=== PATIENT | female | born 1990 | race Caucasian/White ===

== ENCOUNTER 2017-11-17 11:07 | Emergency (ER) | payer BC, MEDICAID, SELFPAY ==
[2017-11-17 11:08] VITALS: BP 107/82; PULSE 88; RESP 18; TEMP 36.7; O2SAT 100; BMI 17.8
--- NOTE | 2017-11-17 11:14 | XR_ITS ---
XR chest 2V HISTORY: ITS.REASON: CHEST PAIN ORDERING PHYSICIAN: Kevan Benitez MD PATIENT AGE: 26 years COMPARISON: None available FINDINGS: The cardiomediastinal silhouette and pulmonary vascularity are within normal limits. The lungs are clear without infiltrates, suspicious nodules, or pleural effusions. Calcified granulomas present in the left midlung No acute bony abnormalities. IMPRESSION: No acute finding, old granulomatous disease
[2017-11-17 11:32] LABS: Basophils # 0.1 K/mm3 (0-0.2); Eosinophils # 0.3 K/mm3 (0.0-0.4); Eosinophils % 5.6 % (0.1-12.0); Hematocrit 41.5 % (37.0-47.0); Hemoglobin 13.9 g/dL (12.2-16.2); Lymphocytes # 1.7 K/mm3 (0.7-4.5); Mean Corpuscular HGB Conc 33.4 g/dL (31.8-35.4); Mean Corpuscular Hemoglobin 30.2 pg (27.0-31.2); Mean Corpuscular Volume 90.4 fl (81-99); Mean Platelet Volume 7.5 fl (7.4-10.4); Monocytes # 0.4 K/mm3 (0.1-1.0); Monocytes % 9.4 % (1.7-9.3); Neutrophils # 2.1 K/mm3 (1.8-7.8); Platelet Count 271 K/mm3 (142-424); Red Blood Count 4.59 M/mm3 (4.20-5.40); Red Cell Distribution Width 12.7 % (11.5-17.5); White Blood Count 4.5 K/mm3 (4.8-10.8)
[2017-11-17 11:33] LABS: Microscopic, Urine URINE MICROSCOPIC (MICROSCOPIC)
[2017-11-17 11:36] LABS: Appearance,Urine CLEAR (Clear); Bilirubin,Urine Negative (Negative); Blood, Urine 2+ (Negative); Color,Urine YELLOW (Yellow); Glucose,Urine (UA) Negative (Negative); Ketones,Urine Negative (Negative); Leukocyte Esterase,Urine Negative (Negative); Nitrate,Urine Negative (Negative); Protein,Urine Negative (Negative); Urobilinogen,Urine 0.2 EU/dl (0.2)
[2017-11-17 11:39] LABS: Urine Pregnancy, HCG Qual. Negative (Negative)
[2017-11-17 11:47] LABS: D-Dimer < 100 (0-400)
[2017-11-17 11:51] LABS: Bacteria,Urine Trace /lpf; RBC,Urine Occasional #/hpf (0-3); Squamous Epithelial Cell,Urine Occasional #/hpf (0-5)
[2017-11-17 11:52] LABS: Amphetamine/Metha Screen,Urine Negative ng/mL (<1000); Barbiturates Screen,Urine Negative ng/mL (<200); Benzodiazepines Screen,Urine Negative ng/mL (200); Cannabinoid Screen,Urine Negative ng/mL (<50); Cocaine Screen,Urine Negative ng/g (<300); Methadone Screen,Urine Negative ng/mL (<300); Opiate Screen,Urine Negative ng/mL (<300); Phencyclidine Screen,Urine Negative ng/mL (<25)
[2017-11-17 12:10] LABS: Alanine Aminotransferase 16 U/L (12-78); Albumin/Globulin Ratio 1.2 (1.1-1.8); Alkaline Phosphatase 44 U/L (46-116); Anion Gap 10.5 mEq/L (5-15); Aspartate Amino Transferase 12 U/L (15-37); Bilirubin,Total 0.5 mg/dL (0.2-1.0); Blood Urea Nitrogen 9 mg/dL (7-18); Calcium 8.5 mg/dL (8.5-10.1); Carbon Dioxide 27 mmol/L (21.0-32.0); Chloride 106 mmol/L (98-107); Creatine Kinase 52 U/L (26-192); Creatinine Clearance Estimated 100 mL/min (0-300); Creatinine,Serum 0.64 mg/dL (0.55-1.02); Estimated Glomerular Filt Rate 110 ml/min (>60); GFR (African American) 134 ML/MIN (>60); Globulin 3.3 gm/dl (1.3-3.2); Glucose 87 mg/dL (74-106); Potassium 3.5 mmoL/L (3.5-5.1); Sodium 140 mmol/L (136-145); Total Protein,Serum 7.3 gm/dL (6.4-8.2); Troponin I < 0.02 ng/ml (0.00-0.06)
[2017-11-17 12:11] LABS: Creatine Kinase MB < 0.5 mg/ml (0.0-3.6)
--- NOTE | 2017-11-17 12:41 | HMH.EDCP ---
ED Disposition Clinical Impression: Atypical chest pain, Tobacco use Disposition: Home, Self-Care Condition on Discharge: Good Additional Instructions: 1- The patient was advised for daily aspirin. EC 325 mg . 2-patient was advised for an outpatient stress test by Dr. Cotton. 3-stop smoking. 4-follow-up with a primary care physician Feliberto العراقي on her abnormal chest x-ray. 5-to return if she develops any new symptoms. Referrals: Damien Conley MD [Primary Care Provider] - Nadeem Cotton MD [Staff Physician] - - Critical Care Critical Care Time: No Attestation: On 11/17/17, the high probability of a clinically significant, sudden or life threatening deterioration of the following system(s) required my full and direct attention, intervention and personal management. The time I documented below is in addition to time spent performing reported procedures but includes the following listed in this critical care notation. Medical Decision Making - Medical Records Medical records reviewed: Yes: I reviewed the patient's medical records. Vital Signs: 11/17/17 11:08 Temperature 98.0 F Temperature Source Temporal Artery Scan Pulse Rate [Right Brachial] 88 Respiratory Rate 18 Blood Pressure [Right Arm] 107/82 Blood Pressure Mean [Right Arm] 90 Blood Pressure Source [Right Arm] Automatic Cuff Blood Pressure Position [Right Arm] Sitting 02 Sat by Pulse Oximetry 100 Oxygen Delivery Method Room Air - Lab Data Lab Results 11/17/17 11:15: WBC 4.5 L, RBC 4.59, Hgb 13.9, Hct 41.5, MCV 90.4, MCH 30.2, MCHC 33.4, RDW 12.7, Plt Count 271, MPV 7.5, Neut % (Auto) 47.0, Lymph % (Auto) 37.0, [place] % (Auto) 9.4 H, Eos % (Auto) 5.6, Baso % (Auto) 1.0, Neut # (Auto) 2.1, Lymph # (Auto) 1.7, [place] # (Auto) 0.4, Eos # (Auto) 0.3, Baso # (Auto) 0.1 11/17/17 11:15: Urine HCG, Qual Negative 11/17/17 11:15: Sodium 140, Potassium 3.5, Chloride 106, Carbon Dioxide 27, Anion Gap 10.5, BUN 9, Creatinine 0.64, Estimated Creat Clear 100, Estimated GFR 110, Est GFR ( Amer) 134, Glucose 87, Calcium 8.5, Total Bilirubin 0.5, AST 12 L, ALT 16, Alkaline Phosphatase 44 L, Total Creatine Kinase 52, CK-MB (CK-2) < 0.5, CK-MB (CK-2) Rel Index 1.0, Troponin I < 0.02, Total Protein 7.3, Albumin 4.0, Globulin 3.3 H, Albumin/Globulin Ratio 1.2 11/17/17 11:15: Urine Opiates Screen Negative, Ur Barbituates Screen Negative, Ur Phencyclidine Scrn Negative, Ur Amphetamines Screen Negative, U Methamphetamines Scrn Negative, U Benzodiazepines Scrn Negative, Urine Cocaine Screen Negative, U Marijuana (THC) Screen Negative 11/17/17 11:15: D-Dimer < 100 11/17/17 11:15: B-Natriuretic Peptide 7 11/17/17 11:21: Urine Color Yellow, Urine Appearance Clear, Urine pH 6.0, Ur Specific [place] 1.020, Urine Protein Negative, Urine Glucose (UA) Negative, Urine Ketones Negative, Urine Blood 2+, Urine Nitrate Negative, Urine Bilirubin Negative, Urine Urobilinogen 0.2, Ur Leukocyte Esterase Negative, Urine RBC Occasional, Urine WBC None, Ur Squamous Epith Cells Occasional, Urine Bacteria Trace Result diagrams: 11/17/17 11:15 11/17/17 11:15 Orders (Tests/Meds): ORDERS Category Date Time Status Chest XR 2 view (NOT portable) [XR chest 2V] Stat Exams 11/17/17 11:14 Taken - Radiology Data #1 Image(s): Chest Image Reviewed: Yes I reviewed the patient's radiology image Preliminary Findings: Abnormal Left lung granuloma no acute findings. - ECG Data Tracing #1 Normal sinus rhythm 72/min baseline artifact nonspecific T-wave changes no acute. 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 ECG initial impression date: 11/17/17 - [place] Inquiry Pt receiving controlled substance: No [place] was queried for this patient: No Medical Decision Making Narrative: This 26 years old's advancing atypical chest pain that is worse with arm movement especially when she raises her right arm above her head. He did have prior shoulder inj
--- NOTE | 2017-11-17 12:44 | ED_ITS ---
ED Disposition Clinical Impression: Atypical chest pain, Tobacco use Disposition: Home, Self-Care Condition on Discharge: Good Additional Instructions: 1- The patient was advised for daily aspirin. EC 325 mg . 2-patient was advised for an outpatient stress test by Dr. Cotton. 3-stop smoking. 4-follow-up with a primary care physician Feliberto العراقي on her abnormal chest x -ray. 5-to return if she develops any new symptoms. Referrals: Damien Conley MD [Primary Care Provider] - Nadeem Cotton MD [Staff Physician] - - Critical Care Critical Care Time: No Attestation: On 11/17/17, the high probability of a clinically significant, sudden or life threatening deterioration of the following system(s) required my full and direct attention, intervention and personal management. The time I documented below is in addition to time spent performing reported procedures but includes the following listed in this critical care notation. Medical Decision Making - Medical Records Medical records reviewed: Yes: I reviewed the patient's medical records. Vital Signs: 11/17/17 11:08 Temperature 98.0 F Temperature Source Temporal Artery Scan Pulse Rate [Right Brachial] 88 Respiratory Rate 18 Blood Pressure [Right Arm] 107/82 Blood Pressure Mean [Right Arm] 90 Blood Pressure Source [Right Arm] Automatic Cuff Blood Pressure Position [Right Arm] Sitting 02 Sat by Pulse Oximetry 100 Oxygen Delivery Method Room Air - Lab Data Lab Results 11/17/17 11:15: WBC 4.5 L, RBC 4.59, Hgb 13.9, Hct 41.5, MCV 90.4, MCH 30.2, MCHC 33.4, RDW 12.7, Plt Count 271, MPV 7.5, Neut % (Auto) 47.0, Lymph % (Auto) 37.0, [place] % (Auto) 9.4 H, Eos % (Auto) 5.6, Baso % (Auto) 1.0, Neut # (Auto) 2.1, Lymph # (Auto) 1.7, [place] # (Auto) 0.4, Eos # (Auto) 0.3, Baso # (Auto) 0.1 11/17/17 11:15: Urine HCG, Qual Negative 11/17/17 11:15: Sodium 140, Potassium 3.5, Chloride 106, Carbon Dioxide 27, Anion Gap 10.5, BUN 9, Creatinine 0.64, Estimated Creat Clear 100, Estimated GFR 110, Est GFR ( Amer) 134, Glucose 87, Calcium 8.5, Total Bilirubin 0.5, AST 12 L, ALT 16, Alkaline Phosphatase 44 L, Total Creatine Kinase 52, CK- MB (CK-2) < 0.5, CK-MB (CK-2) Rel Index 1.0, Troponin I < 0.02, Total Protein 7.3, Albumin 4.0, Globulin 3.3 H, Albumin/Globulin Ratio 1.2 11/17/17 11:15: Urine Opiates Screen Negative, Ur Barbituates Screen Negative, Ur Phencyclidine Scrn Negative, Ur Amphetamines Screen Negative, U Methamphetamines Scrn Negative, U Benzodiazepines Scrn Negative, Urine Cocaine Screen Negative, U Marijuana (THC) Screen Negative 11/17/17 11:15: D-Dimer < 100 11/17/17 11:15: B-Natriuretic Peptide 7 11/17/17 11:21: Urine Color Yellow, Urine Appearance Clear, Urine pH 6.0, Ur Specific [place] 1.020, Urine Protein Negative, Urine Glucose (UA) Negative, Urine Ketones Negative, Urine Blood 2+, Urine Nitrate Negative, Urine Bilirubin Negative, Urine Urobilinogen 0.2, Ur Leukocyte Esterase Negative, Urine RBC Occasional, Urine WBC None, Ur Squamous Epith Cells Occasional, Urine Bacteria Trace Result diagrams: 11/17/17 11:15 11/17/17 11:15 Orders (Tests/Meds): ORDERS Category Date Time Status Chest XR 2 view (NOT portable) [XR chest 2V] Stat Exams 11/17/17 11:14 Taken - Radiology Data #1 Image(s): Chest Image Reviewed: Yes I reviewed the patient's radiology image Preliminary Findings: Abnormal Left lung gran
== END 2017-11-17 13:03 | disposition home or self-care (01) ==
PROVIDERS: Emergency Provider Emergency Medicine; Family Provider Internal Medicine; PCP Emergency Medicine
DX: R07.89 Other chest pain (principal); F17.210 Nicotine dependence, cigarettes, uncomplicated
CPT/HCPCS: 71046; 80053; 80305; 81001; 81025; 82550; 82553; 83880; 84484; 85025; 85378; 93005; 99284

== ENCOUNTER → 2017-11-23 13:56 | Outpatient (CLI) | payer BC, MEDICAID, SELFPAY ==
[2017-11-23 15:40] LABS: Erythrocyte Sedimentation Rate 4 mm/hr (0-20)
== END ==
PROVIDERS: PCP Nurse Practitioner Family; Visit Provider Internal Medicine Cardiovascular Disease
DX: R07.89 Other chest pain (principal); R94.31 Abnormal electrocardiogram [ECG] [EKG]; Z72.0 Tobacco use
CPT/HCPCS: 36415; 85651

== ENCOUNTER → 2017-11-26 09:12 | Outpatient (CLI) | payer BC, MEDICAID, SELFPAY ==
--- NOTE | 2017-11-26 09:17 | CA_ITS ---
PROCEDURE: 2-D M-mode and color Doppler study INDICATIONS FOR THE TEST: Chest painx COPD Heart Murmur Tobacco Smokingx Palpitations Fatigue Syncope Edema Hypertension Diabetes Mellitus Rheumatic Fever SOBxDOE Obesity Hyperlipidemia Family History HDx Additional History PATIENT INFORMATION HEIGHT: 5'5'' WEIGHT: 108 GENDER: Female B/P: 2-D/M-MODE INTERPRETATION: 2-D MEASUREMENTS OBSERVED VALUES IN CMS Right Ventricular Dimension (RVDd) 2.1 Interventricular Septum (Thickness)(IVsd) 0.7 Left Ventricular Internal Dimensions(LVIDd) 3.7 Left Ventricular Posterior Wall (Thickness)(LVPWd) 0.8 Aortic Root 2.5 Aortic Cusp Separation 1.5 Left Atrial Dimensions (LAD) 2.6 2D 1. Left atrium is normal size, left ventricle is normal size, there is no concentric left ventricular hypertrophy, visually estimated ejection fraction 55% with no obvious regional wall motion abnormality. 2. The right atrium and right ventricle are relatively normal size and contractility. 3. The aortic, mitral and tricuspid valve are grossly normal. 4. The pulmonic valve is poorly visualized. 5. No significant pericardial effusion noted. DOPPLER INTERROGATION: Doppler interrogation of the aortic, mitral and tricuspid valvular presence of trace mitral and tricuspid regurgitation, tricuspid and jet velocity insufficient for calculation of the right ventricular systolic pressure, diastolic parameters are within normal range. CONCLUSION: 1. Normal left ventricular size, preserved left ventricular systolic function, visually estimated ejection fraction 55% with no obvious regional wall motion abnormality, diastolic parameters are within normal range. 2. Trace mitral and tricuspid regurgitation 3. No significant pericardial effusion noted.
== END ==
PROVIDERS: Family Provider Internal Medicine; PCP Nurse Practitioner Family; Visit Provider Internal Medicine
DX: R07.89 Other chest pain (principal); R94.31 Abnormal electrocardiogram [ECG] [EKG]; Z72.0 Tobacco use
CPT/HCPCS: 93306

== ENCOUNTER 2018-02-03 10:59 | Outpatient (RCR) | payer BC, MEDICAID, SELFPAY ==
--- NOTE | 2018-02-03 11:45 | HMH.PTOPEV ---
Rehab Outpatient Evaluation Rehab OP Evaluation Start: 02/03/18 11:31 Freq: Status: Active Protocol: Document 02/03/18 11:31 KHADRA (Rec: 02/03/18 11:43 KHADRA [id number]) Electronically Signed By Dago Patel, PT 02/03/18 11:31 Outpatient Therapy Subjective History Subjective History Pt reports h/o chronic neck and LBP for ~2-3 yrs. Pt reports bilateral LBP, w/o radicular s/s, and R sided neck pain with radicular s/s into R SH blade area. Pt reports this most recent exacerbation began with insidious onset. Chief Complaint Pain Spasms Stiff Paresthesia Weakness Symptom Type Ache Throb Sharp Dull Stabbing Burning Numbness Tingling Shooting Symptoms Relieved By Rest/Positioning Symptoms Aggravated By Standing Bending/Stooping Physical Activity Twisting Walking Prior Functional Limitations Lifting Housework Standing Sitting Walking Current Functional Limitations Lifting Housework Standing Sitting Walking Symptom Description Constant but Variable Level of pain today (0-10) 7 Pain scale - at its best (0-10) 7 Pain scale - at its worst (0-10) 9 Cervical Eval Palpation Cervical Muscles R Cervical Paraspinal R Suboccipital R CT Junction R Upper Trapezius Cervical/Thoracic Palpation Findings Tenderness Trigger Point Muscle Guarding Posture Head/C-Spine Posture Sitting Position Flexed Head/C-Spine Posture Standing Position Flexed Flexibility Deficits Upper Trapezius Muscle Length (R) Moderate Tightness Scalene Group Muscle Length (R) Moderate Tightness Passive Joint Mobility Ce
== END 2018-02-03 11:00 | disposition home or self-care (01) ==
LOC: PT 10:59
PROVIDERS: Family Provider Internal Medicine; PCP Emergency Medicine; Visit Provider Emergency Medicine
DX: M54.2 Cervicalgia (principal); M54.9 Dorsalgia, unspecified

== ENCOUNTER → 2018-04-27 10:50 | Outpatient (REF) | payer BC, MEDICAID, SELFPAY ==
[2018-04-27 14:26] LABS: Amphetamine/Metha Screen,Urine Negative ng/mL (<1000); Barbiturates Screen,Urine Negative ng/mL (<200); Benzodiazepines Screen,Urine Negative ng/mL (<200); Cannabinoid Screen,Urine Negative ng/mL (<50); Cocaine Screen,Urine Negative ng/mL (<300); Methadone Screen,Urine Negative ng/mL (<300); Opiate Screen,Urine Negative ng/mL (<300); Phencyclidine Screen,Urine Negative ng/mL (<25)
== END ==
LOC: LAB 10:50
PROVIDERS: Visit Provider Emergency Medicine
DX: Z79.899 Other long term (current) drug therapy (principal)
CPT/HCPCS: 80305

== ENCOUNTER → 2018-07-26 10:44 | Outpatient (REF) | payer BC, MEDICAID, SELFPAY ==
[2018-07-26 14:50] LABS: Amphetamine/Metha Screen,Urine Negative ng/mL (<1000); Barbiturates Screen,Urine Negative ng/mL (<200); Benzodiazepines Screen,Urine Negative ng/mL (<200); Cannabinoid Screen,Urine Negative ng/mL (<50); Cocaine Screen,Urine Negative ng/mL (<300); Methadone Screen,Urine Negative ng/mL (<300); Opiate Screen,Urine Negative ng/mL (<300); Phencyclidine Screen,Urine Negative ng/mL (<25)
== END ==
LOC: LAB 10:44
PROVIDERS: Visit Provider Emergency Medicine
DX: Z79.899 Other long term (current) drug therapy (principal)
CPT/HCPCS: 80305

== ENCOUNTER → 2018-07-28 08:27 | Outpatient (CLI) | payer BC, MEDICAID, SELFPAY ==
[2018-08-04 16:24] LABS: Alprazolam Negative (Cutoff=100); Benzodiazepines Negative ng/mL (Cutoff=100); Clonazepam Negative (Cutoff=100); Flurazepam Negative (Cutoff=100); Lorazepam Negative (Cutoff=100); Midazolam Negative (Cutoff=100); Temazepam Negative (Cutoff=100); Triazolam Negative (Cutoff=100)
== END ==
PROVIDERS: Visit Provider Emergency Medicine
DX: Z79.899 Other long term (current) drug therapy (principal)
CPT/HCPCS: 80346

== ENCOUNTER → 2018-10-28 14:03 | Outpatient (CLI) | payer BC, MEDICAID, SELFPAY ==
[2018-10-28 15:12] LABS: Amphetamine/Metha Screen,Urine Negative ng/mL (<1000); Barbiturates Screen,Urine Negative ng/mL (<200); Benzodiazepines Screen,Urine Negative ng/mL (<200); Cannabinoid Screen,Urine Negative ng/mL (<50); Cocaine Screen,Urine Negative ng/mL (<300); Methadone Screen,Urine Negative ng/mL (<300); Opiate Screen,Urine Negative ng/mL (<300); Phencyclidine Screen,Urine Negative ng/mL (<25)
[2018-11-02 10:15] LABS: Alprazolam Negative (Cutoff=100); Benzodiazepines Positive ng/mL (Cutoff=100); Clonazepam Positive (.); Flurazepam Negative (Cutoff=100); Lorazepam Negative (Cutoff=100); Midazolam Negative (Cutoff=100); Temazepam Negative (Cutoff=100); Triazolam Negative (Cutoff=100)
[2018-11-02 13:59] LABS: Clonazepam Confirm 976 ng/mL (Cutoff=100)
== END ==
PROVIDERS: Visit Provider Emergency Medicine
DX: Z79.899 Other long term (current) drug therapy (principal)
CPT/HCPCS: 80305; 80346

== ENCOUNTER → 2019-03-01 17:40 | Outpatient (CLI) | payer BC, MEDICAID, SELFPAY ==
[2019-03-01 18:23] LABS: Amphetamine/Metha Screen,Urine Negative ng/mL (<1000); Barbiturates Screen,Urine Negative ng/mL (<200); Benzodiazepines Screen,Urine Negative ng/mL (<200); Cannabinoid Screen,Urine Negative ng/mL (<50); Cocaine Screen,Urine Negative ng/mL (<300); Methadone Screen,Urine Negative ng/mL (<300); Opiate Screen,Urine Negative ng/mL (<300); Phencyclidine Screen,Urine Negative ng/mL (<25)
== END ==
PROVIDERS: Visit Provider Nurse Practitioner Family
DX: Z79.899 Other long term (current) drug therapy (principal)
CPT/HCPCS: 80305

== ENCOUNTER → 2019-05-25 13:24 | Outpatient (CLI) | payer BC, MEDICAID, SELFPAY ==
[2019-05-25 14:39] LABS: Amphetamine/Metha Screen,Urine Negative ng/mL (<1000); Barbiturates Screen,Urine Negative ng/mL (<200); Benzodiazepines Screen,Urine Negative ng/mL (<200); Cannabinoid Screen,Urine Negative ng/mL (<50); Cocaine Screen,Urine Negative ng/mL (<300); Methadone Screen,Urine Negative ng/mL (<300); Opiate Screen,Urine Negative ng/mL (<300); Phencyclidine Screen,Urine Negative ng/mL (<25)
== END ==
PROVIDERS: Visit Provider Emergency Medicine
DX: Z79.899 Other long term (current) drug therapy (principal)
CPT/HCPCS: 80305

== ENCOUNTER → 2019-08-24 14:03 | Outpatient (CLI) | payer MEDICAID, SELFPAY ==
[2019-08-24 14:44] LABS: Amphetamine/Metha Screen,Urine Negative ng/mL (<1000); Barbiturates Screen,Urine Negative ng/mL (<200); Benzodiazepines Screen,Urine Negative ng/mL (<200); Cannabinoid Screen,Urine Negative ng/mL (<50); Cocaine Screen,Urine Negative ng/mL (<300); Methadone Screen,Urine Negative ng/mL (<300); Opiate Screen,Urine Negative ng/mL (<300); Phencyclidine Screen,Urine Negative ng/mL (<25)
== END ==
PROVIDERS: Visit Provider Emergency Medicine
DX: Z79.899 Other long term (current) drug therapy (principal)
CPT/HCPCS: 80305

== ENCOUNTER → 2019-11-21 13:58 | Outpatient (CLI) | payer BC, MEDICAID, SELFPAY ==
[2019-11-21 20:40] LABS: Amphetamine/Metha Screen,Urine Negative ng/mL (<1000); Barbiturates Screen,Urine Negative ng/mL (<200); Benzodiazepines Screen,Urine Negative ng/mL (<200); Cannabinoid Screen,Urine Negative ng/mL (<50); Cocaine Screen,Urine Negative ng/mL (<300); Methadone Screen,Urine Negative ng/mL (<300); Opiate Screen,Urine Negative ng/mL (<300); Phencyclidine Screen,Urine Negative ng/mL (<25)
== END ==
PROVIDERS: Visit Provider Emergency Medicine
DX: Z79.899 Other long term (current) drug therapy (principal)
CPT/HCPCS: 80305

== ENCOUNTER → 2020-03-14 13:26 | Outpatient (CLI) | payer BC, MEDICAID, SELFPAY ==
[2020-03-14 14:09] LABS: Alanine Aminotransferase 11 U/L (12-78); Albumin Level 4.4 g/dl (3.5-5.0); Albumin/Globulin Ratio 1.5 (1.1-1.8); Alkaline Phosphatase 41 U/L (38-126); Anion Gap 10.8 mEq/L (5-15); Aspartate Amino Transferase 21 U/L (14-36); Bilirubin,Total 0.3 mg/dl (0.2-1.3); Blood Urea Nitrogen 12 mg/dl (7-17); Calcium 9.3 mg/dl (8.4-10.2); Carbon Dioxide 25 mmol/L (22.0-30.0); Chloride 105 mmol/L (98-107); Chol/HDL Ratio 2.3 (1-3.5); Cholesterol 108 mg/dl (140-200); Estimated Glomerular Filt Rate 117 ml/min (>60); GFR (African American) 141 ML/MIN (>60); Globulin 2.9 g/dL (1.3-3.2); Glucose 95 mg/dl (74-100); HDL Cholesterol 46 mg/dl (40-60); Potassium 3.8 mmoL/L (3.5-5.1); Sodium 137 mmol/L (136-145); Total Protein,Serum 7.3 g/dl (6.3-8.2); Triglycerides 64 mg/dl (30-150); VLDL Cholesterol 13 mg/dL (0-40)
[2020-03-14 14:21] LABS: Direct LDL Cholesterol 66.41 mg/dL (100-129)
[2020-03-14 14:28] LABS: Basophils # 0.1 K/mm3 (0-0.2); Basophils % 1.7 % (0.1-2.0); Eosinophils # 0.2 K/mm3 (0.0-0.4); Eosinophils % 4.8 % (0.1-12.0); Hematocrit 49.7 % (37.0-47.0); Hemoglobin 15.5 g/dL (12.2-16.2); Lymphocytes # 1.5 K/mm3 (0.7-4.5); Mean Corpuscular HGB Conc 31.2 g/dL (31.8-35.4); Mean Corpuscular Hemoglobin 29.6 pg (27.0-31.2); Mean Platelet Volume 8.4 fl (7.4-10.4); Monocytes # 0.6 K/mm3 (0.1-1.0); Monocytes % 12.3 % (1.7-9.3); Neutrophils # 2.1 K/mm3 (1.8-7.8); Neutrophils % 47.1 % (37.0-80.0); Platelet Count 288 K/mm3 (142-424); Red Blood Count 5.22 M/mm3 (4.20-5.40); Red Cell Distribution Width 13.4 % (11.5-17.5); White Blood Count 4.5 K/mm3 (4.8-10.8)
[2020-03-14 14:32] LABS: T4 (Thyroxine) 8.2 ug/dl (5.53-11.0)
[2020-03-14 14:45] LABS: Thyroid Stimulating Hormone 1.41 uIU/mL (0.465-4.68)
[2020-03-15 11:38] LABS: Vitamin D 25 Hydroxy 31.9 ng/mL (30.0-100.0)
== END ==
PROVIDERS: Visit Provider Emergency Medicine
DX: Z01.89 Encounter for other specified special examinations (principal); F41.9 Anxiety disorder, unspecified; Z72.0 Tobacco use
CPT/HCPCS: 80053; 80061; 82652; 84436; 84443; 85025

== ENCOUNTER → 2020-03-20 17:32 | Outpatient (CLI) | payer BC, MEDICAID, SELFPAY ==
[2020-03-22 08:13] LABS: Hep A Ab, IgM Negative (Negative); Hep A Ab, Total Negative (Negative); Hep B Core Ab, Total Negative (Negative)
[2020-03-22 10:04] LABS: HIV Screen 4th Generation wRfx Non Reactive (Non Reactive)
[2020-03-22 10:05] LABS: Hep B Surface Ab, Qual Non Reactive (.); Hepatitis B Surface Antigen Negative (Negative); Hepatitis C Antibody <0.1 s/co ratio (0.0-0.9)
[2020-03-22 17:33] LABS: Peripheral Smear Review Scanned Result
== END ==
PROVIDERS: Visit Provider Physician Assistant
DX: D70.9 Neutropenia, unspecified (principal)
CPT/HCPCS: 36415; 86703; 86704; 86706; 86708; 87340; 87380; G0432

== ENCOUNTER 2020-04-26 23:51 | Emergency (ER) | payer BC, MEDICAID, SELFPAY ==
[2020-04-26 23:59] VITALS: BP 121/85; PULSE 86; RESP 14; TEMP 36.7; O2SAT 99; BMI 19.1
--- NOTE | 2020-04-27 00:59 | HMH.EDSKAF ---
ED Disposition Clinical Impression: Cellulitis Qualifiers: Site of cellulitis: neck Qualified Code(s): L03.221 - Cellulitis of neck Disposition: Home, Self-Care Condition on Discharge: Good Instructions: Cellulitis Additional Instructions: use meds and see pcp for follow up Prescriptions: Mupirocin [Bactroban 2% Ointment 22gm tube] 1 applicatio TP BID #1 tube Transmission Status: Pending to [id number] Minocycline HCl [Minocycline HCl 100mg Tab*] 100 mg PO BID #20 tab Transmission Status: Pending to [id number] Referrals: Damien Conley MD [Primary Care Provider] - - Critical Care Critical Care Time: No Attestation: On 04/26/20, the high probability of a clinically significant, sudden or life threatening deterioration of the following system(s) required my full and direct attention, intervention and personal management. The time I documented below is in addition to time spent performing reported procedures but includes the following listed in this critical care notation. Medical Decision Making - Medical Records Medical records reviewed: Yes: I reviewed the patient's medical records. - [place] Inquiry Pt receiving controlled substance: No Vital Signs: 04/26/20 23:59 Temperature 98.1 F Temperature Source Oral Pulse Rate [Right Brachial] 86 Respiratory Rate 14 Blood Pressure [Right Arm] 121/85 Blood Pressure Mean [Right Arm] 97 Blood Pressure Source [Right Arm] Automatic Cuff Blood Pressure Position [Right Arm] Sitting 02 Sat by Pulse Oximetry 99 Oxygen Delivery Method Room Air Skin/Abscess/FB HPI - General Chief complaint: Skin/Abscess/Foreign Body Stated complaint: Knot on back of neck;Tenderness in area Time Seen by Provider: 04/27/20 00:15 Mode of Arrival: Ambulatory Source of Information: Patient, Medical Record Limitations: No Limitations Description of Symptoms (Recalled from ER Triage Doc. by RN): Patient reports a bump that poppd up on the back of her neck about a month ago. Patient reports its never drained or come to a head but the pain has become untolerable. Patient reports her whole neck is sore and she cant even brush her hair because of the pain. - History of Present Illness HPI narrative: painful area post neck w/o trauma or known bite complaint: abscess/boil Onset (ago): hour(s) Tetanus up to date: yes Location: neck Severity: moderate Relieving factors: none Associated symptoms: denies other symptoms Treatments prior to arrival: none - Related Data Previous Rx's Medication Instructions Recorded Fluticasone Propionate [Flonase 1 spr NS DAILY #1 bottle 11/29/19 50mcg nasal spray 16gm] clonazepam 0.5 mg tablet 0.5 mg PO BID #60 tab 03/14/20 [id number] 3.5 2 drp OTIC BID 5 Days #10 ml 03/14/20 mg/mL-10,000 unit/mL-1 % ear solution fluoxetine 20 mg capsule 20 mg PO DAILY #30 cap 04/20/20 Minocycline HCl [Minocycline HCl 100 mg PO BID #20 tab 04/27/20 100mg Tab*] Mupirocin [Bactroban 2% Ointment 1 applicatio TP BID #1 tube 04/27/20 22gm tube] Allergies Allergy/AdvReac Type Severity Reaction Status Date / Time No Known Allergies Allergy Verified 03/14/20 09:43 [facility] History - Hepatitis A Screen Drug use history?: No High risk sexual behaviors?: No History of sexually transmitted infection?: No Currently employed?: No Childcare worker?: No Do you have indoor plumbing?: Yes Do you have electricity?: Yes Attestation statement:: This patient has been screened for Hepatitis A risk factors. I have reviewed the patient's past medical history: Yes Medical History: Reports:: Anxiety, Depression Denies:: Diabetes Mellitus Type 1, Diabetes Mellitus Type 2 Other Surgeries: Yes: Dilation and Curettage, Tubal Ligation Amputation: No Fractures: Yes (JAW) - Social History Smoking Status: Current every day smoker Tobacco Type: cigarettes # Packs/Day (cigarettes): 1 #Yrs smoked (if former smok
[2020-04-27 01:28] VITALS: BP 121/75; PULSE 73; RESP 16; TEMP 36.8
== END 2020-04-27 01:30 | disposition home or self-care (01) ==
PROVIDERS: Emergency Provider Emergency Medicine; PCP Emergency Medicine
DX: L03.221 Cellulitis of neck (principal); F41.8 Other specified anxiety disorders; F17.210 Nicotine dependence, cigarettes, uncomplicated; Z79.899 Other long term (current) drug therapy
CPT/HCPCS: 99281; 99282

== ENCOUNTER 2020-07-06 09:25 | Emergency (ER) | payer BC, MEDICAID, SELFPAY ==
[2020-07-06 09:43] VITALS: BP 119/84; PULSE 99; RESP 15; TEMP 36.6; O2SAT 99; BMI 29.1
--- NOTE | 2020-07-06 10:30 | HMH.EDURI ---
ED Disposition Clinical Impression: URI (upper respiratory infection) Qualifiers: URI type: acute nasopharyngitis (common cold) Qualified Code(s): J00 - Acute nasopharyngitis [common cold] Disposition: Home, Self-Care Condition on Discharge: Good Instructions: DI for Common Cold Referrals: Damien Conley MD [Primary Care Provider] - - Critical Care Critical Care Time: No Attestation: On 07/06/20, the high probability of a clinically significant, sudden or life threatening deterioration of the following system(s) required my full and direct attention, intervention and personal management. The time I documented below is in addition to time spent performing reported procedures but includes the following listed in this critical care notation. Medical Decision Making - Medical Records Medical records reviewed: Yes: I reviewed the patient's medical records. - [place] Inquiry Pt receiving controlled substance: No Vital Signs: 07/06/20 09:43 Temperature 97.9 F Temperature Source Oral Pulse Rate [Right Radial] 99 H Respiratory Rate 15 Blood Pressure [Right Arm] 119/84 Blood Pressure Mean [Right Arm] 95 02 Sat by Pulse Oximetry 99 Oxygen Delivery Method Room Air - Lab Data Lab Results 07/06/20 10:10: Influenza Type A Ag Negative, Influenza Type B Ag Negative 07/06/20 10:10: Group A Strep Rapid Negative Orders (Tests/Meds): ED MEDICATIONS Discontinued Medications Generic Name Dose Route Start Last Admin Trade Name Johnq PRN Reason Stop Dose Admin Acetaminophen 500 mg 07/06/20 09:48 07/06/20 10:06 Tylenol 500mg Tablet PO 07/06/20 09:49 500 mg ONCE ONE Administration Lidocaine HCl 15 ml 07/06/20 09:48 07/06/20 10:06 Lidocaine 2% Viscous Solution 15ml Udc PO 07/06/20 09:49 15 ml ONCE ONE Administration ORDERS Category Date Time Status Covid-19 Nasal PCR Sendout [place] Stat Lab 07/06/20 10:20 Received Strep Screen Confirmation Stat Micro 07/06/20 10:10 Received - Reevaluation(s) Time: 10:58 Reevaluation #1: On reevaluation, patient is feeling much better. Tolerating oral intake. Fluid strep are negative. Patient was given isolation and return precautions. Needs to follow-up with PCP. Verbalized understanding. Medical Decision Narrative: 29-year-old female presented to the emergency department with URI type symptoms. Patient is not hypoxic or febrile at this time. Work-up will be initiated. URI/Sore Throat HPI - General Chief Complaint: Upper Respiratory Infection Stated Complaint: sore throat,cg,ear pain chest burn Time Seen by Provider: 07/06/20 09:50 Mode of Arrival: Ambulatory Limitations: No Limitations Description of Symptoms (Recalled from ER Triage Doc. by RN): pt presents to ed with c/o loss of voice, sore throat and cough. pt also c/o bilateral ear pain. - History of Present Illness HPI Narrative: 29-year-old female presented to the emergency department with upper respiratory type symptoms. The patient has had multiple sick contacts for both of her sons with similar symptoms. She is complaining of runny nose, congestion, sore throat. She is also lost her voice. She is not having any difficulty swallowing, but does endorse pain with swallowing. She denies any fevers or chills. She has had some mild headache, no neck pain. She denies any recent travel. Is having a mild nonproductive cough. Patient denies any chest pain or shortness of breath. No hemoptysis. She is not having any abdominal pain or vomiting. - Related Data Previous Rx's Medication Instructions Recorded Fluticasone Propionate [Flonase 1 spr NS DAILY #1 bottle 11/29/19 50mcg nasal spray 16gm] [id number] 3.5 2 drp OTIC BID 5 Days #10 ml 03/14/20 mg/mL-10,000 unit/mL-1 % ear solution Mupirocin [Bactroban 2% Ointment 1 applicatio TP BID #1 tube 04/27/20 22gm tube] clonazepam 0.5 mg tablet 0.5 mg PO BID #60 tab 06/13/20 fluoxetine 40
[2020-07-06 10:33] LABS: Strep Scrn Group A (Rapid) Negative (Negative)
[2020-07-06 11:19] VITALS: BP 108/84; PULSE 87; RESP 16; TEMP 36.6; O2SAT 99
[2020-07-07 13:21] LABS: Covid-19 Nasal PCR Sendout Lex Not Detected
== END 2020-07-06 11:20 | disposition home or self-care (01) ==
PROVIDERS: Emergency Provider Emergency Medicine; PCP Emergency Medicine
DX: J00 Acute nasopharyngitis [common cold] (principal); Z03.818 Encounter for observation for suspected exposure to other biological agents ruled out; F41.8 Other specified anxiety disorders; F17.210 Nicotine dependence, cigarettes, uncomplicated; Z79.899 Other long term (current) drug therapy
CPT/HCPCS: 87275; 87276; 87430; 99282; U0004

== ENCOUNTER 2020-09-17 09:36 | Emergency (ER) | payer BC, MEDICAID, SELFPAY ==
[2020-09-17 10:30] VITALS: BP 101/68; PULSE 67; RESP 16; TEMP 37; O2SAT 100; BMI 19.4
--- NOTE | 2020-09-17 10:50 | HMH.EDUTC ---
[facility] [place] Disposition Clinical Impression: Muscular aches Diarrhea Qualifiers: Diarrhea type: unspecified type Qualified Code(s): R19.7 - Diarrhea, unspecified Disposition: Home, Self-Care Condition on Discharge: Good Instructions: Diarrhea Additional Instructions: ? Avoid fruit juices, as these do not replace minerals and can actually increase diarrhea. ? Children and adults can use sports drinks to replenish electrolytes. Younger children and infants should use products formulated for children, like oral rehydration solutions. ? Eat food in small amounts and let your stomach recover. ? Get lots of rest. You may feel tired or weak. ? No greasy or fried foods for the next 24-48 hours BRAT diet Bananas Rice Apples and [employer] ? Make sure to drink plenty of liquids ? Return if needed ? Straight to ER if any life threatening symptoms ? You was given an outpatient order for diarrhea panel, please collect specimen and bring back to outpatient lab then call back to the [facility] or follow up with family doctor for results ? Follow up with family doctor in the next 48-72 hours if no improvement or any worsening of symptoms Over the counter Motrin and/or tylenol for body aches Over the counter Muscle rubs like Biofreeze or patches may help with muscle pain/stiffness in neck Prescriptions: Dicyclomine HCl [Bentyl 10mg capsule] 10 mg PO TID PRN #15 cap PRN Reason: Cramping Transmission Status: Received by [id number] Referrals: Damien Conley MD [Primary Care Provider] - As needed Forms: Work/School Release Time of Disposition: 11:15 Medical Decision Making - [place] Inquiry Pt receiving controlled substance: No [place] was queried for this patient: No Vital Signs: 09/17/20 10:30 Temperature 98.6 F Temperature Source Oral Pulse Rate [Right Brachial] 67 Respiratory Rate 16 Blood Pressure [Right Arm] 101/68 L Blood Pressure Mean [Right Arm] 79 Blood Pressure Source [Right Arm] Automatic Cuff Blood Pressure Position [Right Arm] Sitting 02 Sat by Pulse Oximetry 100 Oxygen Delivery Method Room Air Orders (Tests/Meds): ED MEDICATIONS Discontinued Medications Generic Name Dose Route Start Last Admin Trade Name Freq PRN Reason Stop Dose Admin Dicyclomine HCl 10 mg 09/17/20 10:55 Dicyclomine 10mg Capsule PO 09/17/20 10:56 ONCE ONE [facility] [place] HPI - General Stated complaint: diarrhea, stomach pain, body aches Time Seen by Provider: 09/17/20 10:50 Mode of Arrival: Ambulatory Source of Information: Patient Limitations: No Limitations Description of Symptoms (Recalled from Triage Doc. by RN): PATIENT C/O STOMACH CRAMPS, DIARRHEA, BODY ACHES, AND NECK PAIN SINCE LAST NIGHT HEENT Symptoms (Recalled from RN notes): No Resp Symptoms (Recalled from RN notes): No Skin Symptoms (Recalled from RN notes): No MS Symptoms (Recalled from RN notes): Yes Functional Status (Recalled from RN notes): WNL - History of Present Illness Provider Complaint: Patient state that she doesnt feel well States that she has been feeling achy all over and thinks she may have slept wrong her neck is sore and stiff, States that today she has been having some nausea and diarrhea States that she had to leave work earlier States that she is having some cramping and they told her she needed to come in and get checked - Related Data Previous Rx's Medication Instructions Recorded Fluticasone Propionate [Flonase 1 spr NS DAILY #1 bottle 11/29/19 50mcg nasal spray 16gm] fluoxetine 40 mg capsule 40 mg PO DAILY #30 cap 06/18/20 clonazepam 0.5 mg tablet 0.5 mg PO BID #60 tab 09/10/20 meloxicam 15 mg tablet 15 mg PO DAILY #10 tab 09/10/20 Dicyclomine HCl [Bentyl 10mg 10 mg PO TID PRN #15 cap 09/17/20 capsule] Allergies Allergy/AdvReac Type Severity Reaction Status Date / Time No Known Allergies Allergy Verified 09/10/20 09:46 - Worker's Comp Is this a Worker's Comp case?: No [facility] History - Hepatitis A Screen
[2020-09-17 11:25] LABS: UTC Influenza A Antigen Negative (Negative)
[2020-09-17 11:26] LABS: UTC Influenza B Antigen Negative (Negative)
[2020-09-17 11:28] VITALS: BP 101/68; PULSE 67; RESP 16; TEMP 37; O2SAT 100
== END 2020-09-17 11:30 | disposition home or self-care (01) ==
PROVIDERS: Emergency Provider Nurse Practitioner; PCP Emergency Medicine
DX: M79.10 Myalgia, unspecified site (principal); F41.8 Other specified anxiety disorders; Z79.899 Other long term (current) drug therapy; F17.210 Nicotine dependence, cigarettes, uncomplicated
CPT/HCPCS: 87804; 99201

== ENCOUNTER 2020-09-18 09:08 | Emergency (ER) | payer BC, MEDICAID, SELFPAY ==
[2020-09-18 09:25] VITALS: BP 96/63; PULSE 81; RESP 18; TEMP 37.1; O2SAT 98; BMI 19.4
--- NOTE | 2020-09-18 09:46 | HMH.EDUTC ---
[facility] [place] Disposition Clinical Impression: Encounter for laboratory testing for COVID-19 virus Disposition: Home, Self-Care Condition on Discharge: Good Instructions: Diarrhea, DI for Vomiting -- Adult, Preventing the Spread of Coronavirus Discharge Instructions Additional Instructions: *Monitor Temp, Over the counter Motrin or Tylenol as directed/as needed Tylenol every 4 hours and Motrin every 6 hours (as long as your family doctor has told you that you can take it) for fever or pain. and straight to ER if unable to lower temp less than 101.0 after medication given *Warm salt water gargles may help to soothe the throat *Throat Lozenges *Warm fluids like tea with honey may help to soothe the throat *Sleep elevated *Humidifier/Vaporizer Follow up IMMEDIATELY for new or worsening symptoms or no Noticeable improvement over the next 48-72 hours. 911 for difficulty breathing or swallowing You was tested for today for COVID19 your test result should be back in the next 24-48 hours, you may call to the [facility] tomorrow to see if your test results are back and the result [phone] [facility] hours are 9am-9pm You was given a handout with instructions for Self Quarantine and Self isolation for while you wait on test results and what to do if they are positive If you are positive the Health Dept will be contacting you also Prescriptions: Ondansetron [Zofran 4mg ODT] 4 mg PO TIDP PRN #6 tab PRN Reason: Vomiting Transmission Status: Pending to [id number] Referrals: Damien Conley MD [Primary Care Provider] - As needed Forms: Work/School Release Time of Disposition: 10:06 Medical Decision Making - Austen Inquiry Pt receiving controlled substance: No Austen was queried for this patient: No Vital Signs: 09/18/20 09:25 09/18/20 10:01 Temperature 98.8 F Temperature Source Oral Pulse Rate [Right Brachial] 81 Respiratory Rate 18 Blood Pressure [Right Arm] 96/63 L 111/67 Blood Pressure Mean [Right Arm] 74 81 Blood Pressure Source [Right Arm] Automatic Cuff Blood Pressure Position [Right Arm] Sitting 02 Sat by Pulse Oximetry 98 Oxygen Delivery Method Room Air Orders (Tests/Meds): ORDERS Category Date Time Status Covid-19 Nasal PCR Sendout [facility] 11/24/20 09:23 Ordered Medical Decision Narrative: Patient states that she has taken Zofran before without complications or reactions [facility] [place] HPI - General Stated complaint: Covid test Time Seen by Provider: 09/18/20 09:46 Mode of Arrival: Ambulatory Source of Information: Patient Limitations: No Limitations Description of Symptoms (Recalled from Triage Doc. by RN): PATIENT REQUESTING COVID TEST. C/O FEVER, NAUSEA, AND BODY ACHES SINCE YESTERDAY HEENT Symptoms (Recalled from RN notes): No Resp Symptoms (Recalled from RN notes): No Skin Symptoms (Recalled from RN notes): No MS Symptoms (Recalled from RN notes): No Functional Status (Recalled from RN notes): WNL - History of Present Illness Provider Complaint: Patient states that she was seen in the [facility] yesterday for diarrhea and fever but refused tested for COVID States that today she is back and agreeing to have a COVID test done States that she has been having bodyaches, chills and nausea today States that diarrhea is better but still not feeling well - Related Data Previous Rx's Medication Instructions Recorded Fluticasone Propionate [Flonase 1 spr NS DAILY #1 bottle 11/29/19 50mcg nasal spray 16gm] fluoxetine 40 mg capsule 40 mg PO DAILY #30 cap 06/18/20 clonazepam 0.5 mg tablet 0.5 mg PO BID #60 tab 09/10/20 meloxicam 15 mg tablet 15 mg PO DAILY #10 tab 09/10/20 Dicyclomine HCl [Bentyl 10mg 10 mg PO TID PRN #15 cap 09/17/20 capsule] Ondansetron [Zofran 4mg ODT] 4 mg PO TIDP PRN #6 tab 09/18/20 Allergies Allergy/AdvReac Type Severity Reaction Status Date / Time No Known Allergies Allergy Verified 09/10/20 09:46 - Worker's Comp Is this a Worker's Comp case?
[2020-09-18 10:01] VITALS: BP 111/67
[2020-09-18 10:09] VITALS: BP 111/67; PULSE 81; RESP 18; TEMP 37.1; O2SAT 98
[2020-09-18 11:53] LABS: UTC Influenza A Antigen Negative (Negative); UTC Influenza B Antigen Negative (Negative); UTC Strep Screen (Rapid) Negative (Negative)
[2020-09-19 15:29] LABS: Covid-19 Nasal PCR Sendout Lex Not Detected
== END 2020-09-18 10:10 | disposition home or self-care (01) ==
PROVIDERS: Emergency Provider Nurse Practitioner; PCP Emergency Medicine
DX: Z20.828 Contact with and (suspected) exposure to other viral communicable diseases (principal)
CPT/HCPCS: 87804; 87880; 99202; U0004

== ENCOUNTER → 2020-12-28 17:31 | Outpatient (CLI) | payer BC, MEDICAID, SELFPAY ==
[2020-12-28 18:40] LABS: Barbiturates Screen,Urine Negative ng/ml (<200)
[2020-12-28 18:41] LABS: Benzodiazepines Screen,Urine Negative ng/ml (<200)
[2020-12-28 18:42] LABS: Amphetamine/Metha Screen,Urine Negative ng/ml (<1000); Cannabinoid Screen,Urine Negative ng/ml (<50)
[2020-12-28 18:43] LABS: Cocaine Screen,Urine Negative ng/ml (<300)
[2020-12-28 18:44] LABS: Methadone Screen,Urine Negative ng/ml (<300); Opiate Screen,Urine Negative ng/ml (<300)
[2020-12-28 18:45] LABS: Phencyclidine Screen,Urine Negative ng/ml (<25)
== END ==
PROVIDERS: Visit Provider Emergency Medicine
DX: Z79.899 Other long term (current) drug therapy (principal)
CPT/HCPCS: 80305

== ENCOUNTER → 2021-03-29 16:48 | Outpatient (CLI) | payer BC, MEDICAID, SELFPAY ==
[2021-03-29 17:00] LABS: Microscopic, Urine URINE MICROSCOPIC (MICROSCOPIC)
[2021-03-29 17:53] LABS: Appearance,Urine CLEAR (Clear); Bilirubin,Urine Negative (Negative); Blood, Urine TRACE-I (Negative); Color,Urine YELLOW (Yellow); Glucose,Urine (UA) Negative (Negative); Ketones,Urine Negative (Negative); Leukocyte Esterase,Urine 2+ (Negative); Nitrate,Urine Negative (Negative); PH,Urine 5.5 (5.0-8.5); Protein,Urine Negative (Negative); Specific Gravity, Urine 1.025 (1.005-1.030); Urobilinogen,Urine 0.2 EU/dl (0.2)
[2021-03-29 18:05] LABS: Bacteria,Urine 2+ /lpf; Squamous Epithelial Cell,Urine 20-50 #/hpf (0-5)
[2021-04-01 13:34] LABS: Phencyclidine Screen,Urine Negative ng/ml (<25)
[2021-04-01 13:40] LABS: Amphetamine/Metha Screen,Urine Negative ng/ml (<1000)
[2021-04-01 13:41] LABS: Barbiturates Screen,Urine Negative ng/ml (<200)
[2021-04-01 13:42] LABS: Benzodiazepines Screen,Urine Negative ng/ml (<200); Cannabinoid Screen,Urine Negative ng/ml (<50)
[2021-04-01 13:45] LABS: Methadone Screen,Urine Negative ng/ml (<300)
[2021-04-01 13:46] LABS: Opiate Screen,Urine Negative ng/ml (<300)
[2021-04-01 13:47] LABS: Cocaine Screen,Urine Negative ng/ml (<300)
== END ==
PROVIDERS: Visit Provider Emergency Medicine
DX: Z79.899 Other long term (current) drug therapy (principal)
CPT/HCPCS: 80305; 81001; 87086

== ENCOUNTER → 2021-06-21 17:48 | Outpatient (CLI) | payer BC, MEDICAID, SELFPAY ==
[2021-06-21 19:39] LABS: Amphetamine/Metha Screen,Urine Negative ng/ml (<1000)
[2021-06-21 19:40] LABS: Barbiturates Screen,Urine Negative ng/ml (<200)
[2021-06-21 19:41] LABS: Benzodiazepines Screen,Urine Negative ng/ml (<200); Cannabinoid Screen,Urine Negative ng/ml (<50)
[2021-06-21 19:42] LABS: Cocaine Screen,Urine Negative ng/ml (<300)
[2021-06-21 19:43] LABS: Methadone Screen,Urine Negative ng/ml (<300); Opiate Screen,Urine Negative ng/ml (<300)
[2021-06-21 19:44] LABS: Phencyclidine Screen,Urine Negative ng/ml (<25)
== END ==
PROVIDERS: Visit Provider Emergency Medicine
DX: Z79.899 Other long term (current) drug therapy (principal)
CPT/HCPCS: 80305

== ENCOUNTER → 2021-10-14 07:54 | Outpatient (CLI) | payer BC, MEDICAID, SELFPAY ==
--- NOTE | 2021-10-14 07:54 | MR_ITS ---
PROCEDURE: MR LUMBAR SPINE WO CON CLINICAL INDICATION: back pain COMPARISON: No exams were available for comparison TECHNIQUE: Standard multiplanar multiecho sequences are performed without contrast. 3-D MIP and myelographic images are also rendered and reviewed FINDINGS: There is normal alignment.. There is straightening of the lumbar lordosis which is nonspecific. Minimal lumbar curvature convex right. The spinal cord ends the L1 level. T12-L1: Unremarkable. L1-L2: Unremarkable. L2-L3: Unremarkable. L3-L4: Unremarkable. L4-5: There is mild left-sided facet and ligamentum hypertrophy with minimal foraminal narrowing. L5-S1: Unremarkable. No fracture or dislocation. No abnormal bone marrow signal intensity. There is a tubular area of decreased T1 and T2 signal within the posterior aspect of the right kidney with extension posterior to the right kidney with multiple small areas of decreased T1 and T2 signal. This is suspicious for an arteriovenous malformation. CT of the abdomen with contrast suggested for further evaluation. IMPRESSION: 1. No extruded herniated disc or bony canal stenosis. There is minimal facet hypertrophic change on the left at L4-5 with minimal left-sided foraminal narrowing. 2. Suspect arteriovenous malformation of the right kidney/retroperitoneum. Suggest CT abdomen with renal protocol without and with contrast for further evaluation. Dictated by: Yemi Corbin MD 10/15/2021 11:32 Yemi Corbin MD in [place] 10/15/2021 11:32
== END ==
PROVIDERS: PCP Emergency Medicine; Visit Provider Emergency Medicine
DX: M54.9 Dorsalgia, unspecified (principal)
CPT/HCPCS: 72148; 76376

== ENCOUNTER → 2021-10-23 09:35 | Outpatient (CLI) | payer BC, MEDICAID, SELFPAY ==
--- NOTE | 2021-10-23 09:35 | CT_ITS ---
PROCEDURE: CT ABDOMEN WO/W CON CLINICAL HISTORY: renal protocol COMPARISON: MR MR LUMBAR SPINE WO CON from 10/14/2021 TECHNIQUE: Axial images obtained with sagittal and coronal reformats. All CT scans at the facility use one or more dose reduction, viz: automated exposure control, ma/kV adjustment per patient size (including targeted exams where dose is matched to indication, i.e. head), or iterative reconstruction technique. FINDINGS: Lung bases are clear. 8 mm hypodensity is present in the right hepatic lobe anteriorly and 1 in the left hepatic lobe centrally and anteriorly. These may be due to small cysts. The spleen, adrenal glands, and pancreas have an unremarkable appearance. No renal or ureteral calculi. There is a prominent varicosity posterior to the right kidney accounting for the MRI abnormality. This drains into a prominent right gonadal vein which then drains into the superior vena cava at the L3 level. The right renal vein has a somewhat lobular contour not having the smooth appearance of the left renal vein. These findings could be related to prior renal vein obstruction or aplasia. There is prominence of the right medullary portion of the right kidney possibly related to delayed secretion. The left kidney in the left renal vein have an unremarkable appearance. 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 The right renal vein is has a somewhat abnormal appearance. These findings could be related to chronic renal vein occlusion or aplasia. Dictated by: Yemi Corbin MD 10/24/2021 11:31 Yemi Corbin MD in [place] 10/24/2021 11:31
== END ==
PROVIDERS: PCP Emergency Medicine; Visit Provider Emergency Medicine
DX: R39.9 Unspecified symptoms and signs involving the genitourinary system (principal)
CPT/HCPCS: 74170; Q9967

== ENCOUNTER → 2021-11-04 08:58 | Outpatient (POV) | payer BC, MEDICAID, SELFPAY ==
[2021-11-04 09:24] VITALS: BP 95/74; PULSE 92; RESP 18; O2SAT 99
--- NOTE | 2021-11-04 09:35 | HMH.PMCON ---
Assessment and Plan (1) Facet arthropathy, lumbar Status: Acute Category: Medical Code(s): M47.816 - Spondylosis without myelopathy or radiculopathy, lumbar region (2) Bilateral sacroiliitis Status: Acute Category: Medical Code(s): M46.1 - Sacroiliitis, not elsewhere classified - Assessment and plan all Dx Assessment and Plan for all problems:: Patient's MRI is grossly unremarkable except for a mild left-sided facet and ligamentum hypertrophy with minimal foraminal narrowing at L4-L4. She has negative cortez's test. Patient's symptoms are mostly correlated with bilateral sacroiliitis. Patient has tried and failed conservative therapy such as physical therapy and chiropractic adjustments in the past. Patient has positive genie, olena's, compression, and distraction to bilateral hips, worse on the right. We will schedule the patient for a bilateral SI injection. Risk and benefits of this procedure has been discussed with the patient. Patient is currently not on any blood thinners. We will not continue the patient's Mehama 5 mg twice a day. HPI - Data of Consult Patient: new to practice Consult date: 11/04/21 Requesting Physician: Jeannie Rogers APRN - Consult Narrative Reason for consult: low back pain, bilateral hip pain History of present illness: Ms. Avendaño is a 30 year old female comes in here as a new patient. Patient is referred by Dr. Conley for management of acute on chronic low back pain. Patient says that this low back pain, worse on the left, has been going on for several years. She also has bilateral hip pain. Patient denies any recent falls or trauma. 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 She currently works at a [employer] center now where she sits and stands all day. Patient says that her pain is worse with prolonged activity such as sitting and standing. It is also aggravated by bending. She says that twisting does not make it worse. Patient says that the pain radiates to her groin and thighs, but not below the knees. She denies any numbness and tingling to bilateral lower extremities. Her recent MRI shows unremarkable results in T12-L4 and L5-S1. She has mild left-sided facet and ligamentum hypertrophy with minimal foraminal narrowing at L4-L5. Patient has done physical therapy for one year in the past which did not provide any relief. Patient has also tried chiropractic adjustment that provided minimal relief. Patient is also taking Mehama 5mg twice a day that is prescribed by Dr. Conley which is providing some relief. She rates her pain today as 10/10, but she said that it's because she drove for 1.5 hr today. Her pain is typically around 7 or 8/10. Patient is also taking clonazepam 0.5 mg twice a day that is also prescribed by Dr. Conley for anxiety. Her Austen number is [id number] and active morphine equivalent oxycodone. CC: Jeannie Rogers APRN [facility] History I have reviewed the patient's past medical history: Yes Medical History: Reports:: Anxiety, Depression Denies:: Diabetes Mellitus Type 1, Diabetes Mellitus Type 2 *Have you ever received a pneumonia vaccine?: No *Have you received a flu vaccine this season?: No Other Surgeries: Yes: Dilation and Curettage, Tubal Ligation Amputation: No Fractures: Yes (JAW) - *Social History Smoking Status: Current every day smoker Tobacco Type: cigarettes # Packs/Day (cigarettes): 1 #Yrs smoked (if former smoker): 13 Alcohol Intake: never Alcohol Intake Frequency:: holidays/special occasions only Substance Use Type: denies use *Occupational Status:: employed Housing: house Household Members: family *Travel in the last 8 weeks: None - Psychiatric History Pschychiatric History:: Reports:: Anxiety, Depression Family Hx:: Coronary Artery Disease Review of Systems - Review of Systems Review of Systems General: No recent weight changes, no fever, no sleep disturbances Respiratory: No cough, no shortness of air, no recurring pu
== END ==
PROVIDERS: Visit Provider Clinical Nurse Specialist Family Health
DX: M47.816 Spondylosis without myelopathy or radiculopathy, lumbar region (principal); M46.1 Sacroiliitis, not elsewhere classified
CPT/HCPCS: 99202; G0463

== ENCOUNTER 2021-11-22 11:17 | Day surgery (SDC) | payer BC, MEDICAID, SELFPAY ==
[2021-11-22 11:31] VITALS: BP 103/73; PULSE 90; RESP 18; TEMP 37; O2SAT 100
[2021-11-22 11:58] VITALS: BP 99/70; PULSE 107; RESP 18; O2SAT 97
[2021-11-22 11:59] VITALS: PULSE 105; RESP 18; O2SAT 97
[2021-11-22 12:10] VITALS: BP 96/63; PULSE 66; RESP 20; O2SAT 96
--- NOTE | 2021-11-22 12:30 | P.PCN_ITS ---
- Procedure Date: 11/22/21 Time: 12:32 Anesthesiologist:: Jadon Hua MD Complications:: None Pre-procedure Diagnosis:: Sacroiliitis Post-procedure Diagnosis:: Same Indications for Procedure:: This patient is a pleasant 30-year-old white female who we are treating for bilateral hip pain and low back pain. She is tender over both SI joints. She is positive Merlene's test bilaterally. She is positive Eliza test bilaterally. She is positive SI joint compression test bilaterally. We will plan on bilateral SI joint injections under fluoroscopy today. Procedure Details:: B/L SI joint injection under fluoroscopy Informed consent was obtained and the risks and benefits of the procedure was explained to the patient. The patient was taken to the procedure room and placed prone on the procedure table. The patient was prepped using ChloraPrep. The skin and subcutaneous tissues overlying the SI joints were anesthetized using lidocaine. I placed a 22-gauge needle first in the left SI joint and second in the right SI joint. Needle placement was confirmed with dye. After this we injected 5 mL bupivacaine 0.25% and Depo-Medrol 40 mg into each SI vignesh int. Patient tolerated the procedure well with no complication. Plan and Disposition:: We will follow-up with her in 2 weeks. Will reevaluate symptoms at that time.
== END 2021-11-22 12:11 | disposition home or self-care (01) ==
LOC: SC.PAINP 11:17
PROVIDERS: PCP Emergency Medicine; Visit Provider Anesthesiology
DX: M46.1 Sacroiliitis, not elsewhere classified (principal); N28.9 Disorder of kidney and ureter, unspecified; F41.9 Anxiety disorder, unspecified; F32.A Depression, unspecified; F43.10 Post-traumatic stress disorder, unspecified; Z72.0 Tobacco use
CPT/HCPCS: 27096; G0260; J1040; Q9966

== ENCOUNTER → 2021-12-12 14:08 | Outpatient (POV) | payer BC, MEDICAID, SELFPAY ==
[2021-12-12 14:28] VITALS: BP 118/77; PULSE 80; RESP 18; O2SAT 98
--- NOTE | 2021-12-12 14:52 | P.CONS_ITS ---
[facility] Pain Management SOAP Note Subjective:: This patient is a very pleasant 31-year-old white female who presents today for follow-up. She is currently being treated for bilateral sacroiliitis. She recently underwent bilateral SI joint injections under fluoroscopy on November 22, 2021. She notes 70 to 80% pain relief that is ongoing at this time. However, she states that the injection itself was very painful and she would like to hold off on repeat injections for as long as possible. She rates her pain today as a 6 out of 10. She is currently prescribed clonazepam 0.5 mg twice daily and was previously prescribed hydrocodone 5 mg twice daily both prescribed by MS Conley. ROS General: No recent weight changes, no fever, no sleep disturbances Respiratory: No cough, no shortness of air, no recurring pulmonary infections Cardiovascular/peripheral vascular: No chest pain, no palpitations, no edema, no shortness of breath Gastrointestinal: No new onset incontinence, normal bowel movements reported Genitourinary: No new onset incontinence Musculoskeletal: Low back pain, bilateral hip pain Psychiatric: [Normal mood/affect] Neurological: [Denies weakness in extremities], [denies balance issues] Objective:: General: Alert and oriented x3, no acute distress, pleasant and cooperative Lungs: Resps E/U, symmetric chest expansion Eyes: PERRL Musculoskeletal: limited flexion and extension of the lumbar spine secondary to pain. Deep tendon reflexes were normal in bilateral lower extremities. Motor exam was grossly intact in the bilateral lower extremities Neurological: Speech is clear, director of quality equal, no gross sensory deficits Assessment:: Bilateral sacroiliitis, chronic low back pain, bilateral hip pain Plan:: I discussed with the patient we will continue to monitor symptoms for now. We can consider repeat injections if needed once the pain starts to return. We will follow-up with this patient in 1 month for reassessment of her chronic pain symptoms. We discussed starting physical therapy today however the patient would like to hold off and we discussed at the next clinic visit. Austen #[id number] and prior drug screens were reviewed and appropriate. [facility] History Medical History: Reports:: Anxiety, Depression Denies:: Cancer, Diabetes Mellitus Type 1, Diabetes Mellitus Type 2 *Have you ever received a pneumonia vaccine?: No *Have you received a flu vaccine this season?: No Other Surgeries: Yes: No Previous Surgery, Dilation and Curettage, Tubal Ligation Amputation: No Fractures: Yes (JAW) - *Social History Smoking Status: Current every day smoker Tobacco Type: cigarettes # Packs/Day (cigarettes): 1 #Yrs smoked (if former smoker): 13 Alcohol Intake: never Alcohol Intake Frequency:: holidays/special occasions only Substance Use Type: denies use *Occupational Status:: employed Housing: house Household Members: family *Travel in the last 8 weeks: None - Psychiatric History Pschychiatric History:: Reports:: Anxiety, Depression Family Hx:: Other
== END ==
PROVIDERS: Visit Provider Anesthesiology Pain Medicine
DX: M46.1 Sacroiliitis, not elsewhere classified (principal); M54.59 Other low back pain; G89.29 Other chronic pain; M25.552 Pain in left hip; M25.551 Pain in right hip
CPT/HCPCS: 99212; G0463

== ENCOUNTER → 2021-12-23 16:00 | Outpatient (CLI) | payer BC, MEDICAID, SELFPAY ==
[2021-12-23 14:34] LABS: Amphetamine/Metha Screen,Urine Negative ng/ml (<1000); Barbiturates Screen,Urine Negative ng/ml (<200)
[2021-12-23 14:35] LABS: Benzodiazepines Screen,Urine Negative ng/ml (<200); Cannabinoid Screen,Urine Negative ng/ml (<50)
[2021-12-23 14:38] LABS: Cocaine Screen,Urine Negative ng/ml (<300)
[2021-12-23 14:39] LABS: Methadone Screen,Urine Negative ng/ml (<300); Opiate Screen,Urine Negative ng/ml (<300)
[2021-12-23 14:40] LABS: Phencyclidine Screen,Urine Negative ng/ml (<25)
== END ==
PROVIDERS: Visit Provider Emergency Medicine
DX: Z79.899 Other long term (current) drug therapy (principal)
CPT/HCPCS: 80305

== ENCOUNTER → 2022-02-17 09:03 | Outpatient (CLI) | payer BC, MEDICAID, SELFPAY ==
[2022-02-17 14:29] LABS: Barbiturates Screen,Urine Negative ng/ml (<200)
[2022-02-17 14:30] LABS: Amphetamine/Metha Screen,Urine Negative ng/ml (<1000); Benzodiazepines Screen,Urine Negative ng/ml (<200)
[2022-02-17 14:31] LABS: Cannabinoid Screen,Urine Negative ng/ml (<50)
[2022-02-17 14:32] LABS: Cocaine Screen,Urine Negative ng/ml (<300); Methadone Screen,Urine Negative ng/ml (<300)
[2022-02-17 14:33] LABS: Opiate Screen,Urine Positive ng/ml (<300); Phencyclidine Screen,Urine Negative ng/ml (<25)
== END ==
PROVIDERS: PCP Emergency Medicine; Visit Provider Emergency Medicine
DX: Z79.899 Other long term (current) drug therapy (principal)
CPT/HCPCS: 80305

== ENCOUNTER → 2022-05-13 20:27 | Outpatient (CLI) | payer BC, MEDICAID, SELFPAY ==
[2022-05-13 15:21] LABS: Amphetamine/Metha Screen,Urine Negative ng/ml (<1000)
[2022-05-13 15:23] LABS: Barbiturates Screen,Urine Negative ng/ml (<200)
[2022-05-13 15:24] LABS: Benzodiazepines Screen,Urine Negative ng/ml (<200)
[2022-05-13 15:25] LABS: Cannabinoid Screen,Urine Negative ng/ml (<50); Cocaine Screen,Urine Negative ng/ml (<300)
[2022-05-13 15:26] LABS: Methadone Screen,Urine Negative ng/ml (<300); Opiate Screen,Urine Negative ng/ml (<300)
[2022-05-13 15:27] LABS: Phencyclidine Screen,Urine Negative ng/ml (<25)
== END ==
PROVIDERS: PCP Emergency Medicine; Visit Provider Emergency Medicine
DX: M47.816 Spondylosis without myelopathy or radiculopathy, lumbar region (principal)
CPT/HCPCS: 80305

== ENCOUNTER → 2022-07-11 14:10 | Outpatient (CLI) | payer BC, MEDICAID, SELFPAY ==
[2022-07-11 19:27] LABS: Amphetamine/Metha Screen,Urine Negative ng/ml (<1000)
[2022-07-11 19:28] LABS: Barbiturates Screen,Urine Negative ng/ml (<200)
[2022-07-11 19:29] LABS: Benzodiazepines Screen,Urine Negative ng/ml (<200); Cannabinoid Screen,Urine Negative ng/ml (<50)
[2022-07-11 19:30] LABS: Cocaine Screen,Urine Negative ng/ml (<300); Methadone Screen,Urine Negative ng/ml (<300)
[2022-07-11 19:31] LABS: Opiate Screen,Urine Positive ng/ml (<300)
[2022-07-11 19:32] LABS: Phencyclidine Screen,Urine Negative ng/ml (<25)
== END ==
PROVIDERS: PCP Emergency Medicine; Visit Provider Emergency Medicine
DX: Z79.899 Other long term (current) drug therapy (principal); R35.0 Frequency of micturition
CPT/HCPCS: 80305; 87086

== ENCOUNTER → 2022-09-09 16:00 | Outpatient (CLI) | payer BC, MEDICAID, SELFPAY ==
[2022-09-09 20:16] LABS: Amphetamine/Metha Screen,Urine Negative ng/ml (<1000)
[2022-09-09 20:17] LABS: Barbiturates Screen,Urine Negative ng/ml (<200)
[2022-09-09 20:18] LABS: Benzodiazepines Screen,Urine Negative ng/ml (<200)
[2022-09-09 20:19] LABS: Cannabinoid Screen,Urine Negative ng/ml (<50)
[2022-09-09 20:23] LABS: Cocaine Screen,Urine Negative ng/ml (<300); Methadone Screen,Urine Negative ng/ml (<300)
[2022-09-09 20:24] LABS: Opiate Screen,Urine Positive ng/ml (<300); Phencyclidine Screen,Urine Negative ng/ml (<25)
== END ==
PROVIDERS: PCP Emergency Medicine; Visit Provider Emergency Medicine
DX: Z79.899 Other long term (current) drug therapy (principal)
CPT/HCPCS: 80305

== ENCOUNTER → 2022-11-05 11:13 | Outpatient (CLI) | payer BC, MEDICAID, SELFPAY ==
[2022-11-05 19:31] LABS: Barbiturates Screen,Urine Negative ng/ml (<200)
[2022-11-05 19:32] LABS: Amphetamine/Metha Screen,Urine Negative ng/ml (<1000)
[2022-11-05 19:33] LABS: Benzodiazepines Screen,Urine Negative ng/ml (<200); Cannabinoid Screen,Urine Negative ng/ml (<50)
[2022-11-05 19:34] LABS: Cocaine Screen,Urine Negative ng/ml (<300)
[2022-11-05 19:35] LABS: Methadone Screen,Urine Negative ng/ml (<300); Opiate Screen,Urine Positive ng/ml (<300)
[2022-11-05 19:36] LABS: Phencyclidine Screen,Urine Negative ng/ml (<25)
== END ==
PROVIDERS: PCP Emergency Medicine; Visit Provider Emergency Medicine
DX: Z79.899 Other long term (current) drug therapy (principal)
CPT/HCPCS: 80305

== ENCOUNTER → 2023-01-02 11:22 | Outpatient (CLI) | payer OTHER, BC, MEDICAID, SELFPAY ==
[2023-01-02 19:03] LABS: Benzodiazepines Screen,Urine Negative ng/ml (<200)
[2023-01-02 19:04] LABS: Amphetamine/Metha Screen,Urine Negative ng/ml (<1000); Barbiturates Screen,Urine Negative ng/ml (<200)
[2023-01-02 19:05] LABS: Cannabinoid Screen,Urine Negative ng/ml (<50); Cocaine Screen,Urine Negative ng/ml (<300)
[2023-01-02 19:06] LABS: Methadone Screen,Urine Negative ng/ml (<300)
[2023-01-02 19:07] LABS: Opiate Screen,Urine Positive ng/ml (<300); Phencyclidine Screen,Urine Negative ng/ml (<25)
== END ==
PROVIDERS: PCP Emergency Medicine; Visit Provider Emergency Medicine
DX: M46.1 Sacroiliitis, not elsewhere classified (principal)
CPT/HCPCS: 80305

== ENCOUNTER → 2023-02-27 16:00 | Outpatient (CLI) | payer OTHER, BC, MEDICAID, SELFPAY ==
[2023-02-27 19:57] LABS: Amphetamine/Metha Screen,Urine Negative ng/ml (<1000); Benzodiazepines Screen,Urine Negative ng/ml (<200)
[2023-02-27 19:58] LABS: Barbiturates Screen,Urine Negative ng/ml (<200)
[2023-02-27 19:59] LABS: Cannabinoid Screen,Urine Negative ng/ml (<50); Cocaine Screen,Urine Negative ng/ml (<300)
[2023-02-27 20:00] LABS: Methadone Screen,Urine Negative ng/ml (<300); Opiate Screen,Urine Positive ng/ml (<300)
[2023-02-27 20:01] LABS: Phencyclidine Screen,Urine Negative ng/ml (<25)
== END ==
PROVIDERS: PCP Nurse Practitioner Family; Visit Provider Nurse Practitioner Family
DX: Z79.899 Other long term (current) drug therapy (principal)
CPT/HCPCS: 80305

== ENCOUNTER → 2023-04-27 23:37 | Outpatient (CLI) | payer OTHER, BC, MEDICAID, SELFPAY ==
[2023-04-27 18:30] LABS: Amphetamine/Metha Screen,Urine Negative ng/ml (<1000)
[2023-04-27 18:32] LABS: Barbiturates Screen,Urine Negative ng/ml (<200); Benzodiazepines Screen,Urine Negative ng/ml (<200)
[2023-04-27 18:33] LABS: Cannabinoid Screen,Urine Negative ng/ml (<50)
[2023-04-27 18:34] LABS: Cocaine Screen,Urine Negative ng/ml (<300)
[2023-04-27 18:35] LABS: Methadone Screen,Urine Negative ng/ml (<300); Opiate Screen,Urine Positive ng/ml (<300)
[2023-04-27 18:36] LABS: Phencyclidine Screen,Urine Negative ng/ml (<25)
== END ==
PROVIDERS: PCP Emergency Medicine; Visit Provider Emergency Medicine
DX: F41.9 Anxiety disorder, unspecified (principal)
CPT/HCPCS: 80305

== ENCOUNTER → 2023-05-15 06:56 | Outpatient (CLI) | payer OTHER, BC, MEDICAID, SELFPAY ==
--- NOTE | 2023-05-15 07:01 | US_ITS ---
FINAL REPORT TECHNIQUE: Sonographic images of the abdomen were obtained in all four quadrants. CLINICAL HISTORY: abdominal pain COMPARISON: None FINDINGS: LIVER: Homogeneous. No focal hepatic lesion or intrahepatic biliary dilatation. GALLBLADDER: No gallstones. No pericholecystic fluid collection or gallbladder wall thickening. The common duct measures 2 mm. This is within normal limits for age. PANCREAS: Unremarkable. RIGHT KIDNEY: 11.5 cm. No hydronephrosis, mass or stone. LEFT KIDNEY: 10.8 cm. No hydronephrosis, mass or stone. SPLEEN: 9.6 cm. No focal splenic lesion. AORTA/IVC: No abdominal aortic aneurysm. Visualized IVC within normal limits. OTHER: No ascites. IMPRESSION: Unremarkable ultrasound of the abdomen. Reviewed, Interpreted and Dictated by Elise Aldridge MD Transcribed by Zo Shine Authenticated and [facility]
== END ==
PROVIDERS: PCP Emergency Medicine; Visit Provider Emergency Medicine
DX: R10.9 Unspecified abdominal pain (principal)
CPT/HCPCS: 76700

== ENCOUNTER → 2023-06-24 23:25 | Outpatient (CLI) | payer OTHER, BC, SELFPAY ==
[2023-06-24 19:22] LABS: Adenovirus,PCR Not Detected (NotDetected); Bordetella Pertussis Not Detected (NotDetected); Chlamydophila Pneumoniae, PCR Not Detected (NotDetected); Coronavirus 19, PCR Not Detected (NotDetected); Coronavirus 229E Not Detected (NotDetected); Coronavirus NL63 Not Detected (NotDetected); Coronavirus OC43 Not Detected (NotDetected); Coronovirus HKU1,PCR Not Detected (NotDetected); Human Metapneumovirus Not Detected (NotDetected); Influenza A, PCR Not Detected (NotDetected); Influenza AH1, 2009 Not Detected (NotDetected); Influenza AH1, PCR Not Detected (NotDetected); Influenza AH3,PCR Not Detected (NotDetected); Influenza B, PCR Not Detected (NotDetected); Mycoplasma Pneumoniae, PCR Not Detected (NotDetected); Parainfluenza 1, PCR Not Detected (NotDetected); Parainfluenza 2, PCR Not Detected (NotDetected); Parainfluenza 3, PCR Not Detected (NotDetected); Parainfluenza 4, PCR Not Detected (NotDetected); Respiratory Syncytial Virus Not Detected (NotDetected)
[2023-06-24 23:00] LABS: Barbiturates Screen,Urine Negative ng/ml (<200)
[2023-06-24 23:01] LABS: Amphetamine/Metha Screen,Urine Negative ng/ml (<1000); Benzodiazepines Screen,Urine Negative ng/ml (<200)
[2023-06-24 23:02] LABS: Cannabinoid Screen,Urine Negative ng/ml (<50)
[2023-06-24 23:03] LABS: Cocaine Screen,Urine Negative ng/ml (<300); Methadone Screen,Urine Negative ng/ml (<300)
[2023-06-24 23:04] LABS: Opiate Screen,Urine Positive ng/ml (<300); Phencyclidine Screen,Urine Negative ng/ml (<25)
[2023-06-25 05:51] LABS: Rhinovirus/Enterovirus Detected (NotDetected)
== END ==
PROVIDERS: PCP Emergency Medicine; Visit Provider Emergency Medicine
DX: F41.9 Anxiety disorder, unspecified (principal); R09.89 Other specified symptoms and signs involving the circulatory and respiratory systems; B34.1 Enterovirus infection, unspecified
CPT/HCPCS: 80305; 87581; 87632; 87798

== ENCOUNTER → 2023-06-24 23:36 | Outpatient (CLI) | payer OTHER, BC, SELFPAY | PROVIDERS: PCP Emergency Medicine; Visit Provider Emergency Medicine | DX: F41.9 Anxiety disorder, unspecified (principal) ==

== ENCOUNTER → 2023-07-09 09:34 | Outpatient (CLI) | payer OTHER, BC, SELFPAY ==
--- NOTE | 2023-07-09 09:35 | NM_ITS ---
FINAL REPORT CLINICAL HISTORY: abdominal pain 9:40 am 8.35 mci tc choletec 1.1 mcg of cck no pain during cck no gb stones from u/s done on 05/15/23 COMPARISON: None FINDINGS: Sequential anterior projection images of the abdomen were obtained after the intravenous injection of 8.35 mCi technetium 99m Choletec. There is normal uptake of radiotracer by the liver. The bile ducts and gallbladder are visualized by 10 minutes. Bowel activity is noted by 15 minutes. After 1 hour, 1.1 ?g of CCK was injected intravenously for calculation of gallbladder ejection fraction. The gallbladder ejection fraction is 93%, which is within normal limits. IMPRESSION: No evidence of cystic duct or bile duct obstruction. Normal gallbladder ejection fraction of 93%. Reviewed, Interpreted and Dictated by Gal Garcia III, MD Transcribed by Arabella Barrios Authenticated and [facility]
== END ==
PROVIDERS: PCP Emergency Medicine; Visit Provider Emergency Medicine
DX: R10.9 Unspecified abdominal pain (principal)
CPT/HCPCS: 78227; A9537; J2805

== ENCOUNTER → 2023-08-25 14:36 | Outpatient (CLI) | payer OTHER, BC, SELFPAY ==
[2023-08-25 13:32] LABS: Amphetamine/Metha Screen,Urine Negative ng/ml (<1000)
[2023-08-25 13:33] LABS: Barbiturates Screen,Urine Negative ng/ml (<200)
[2023-08-25 13:34] LABS: Benzodiazepines Screen,Urine Negative ng/ml (<200)
[2023-08-25 13:39] LABS: Cannabinoid Screen,Urine Negative ng/ml (<50)
[2023-08-25 13:42] LABS: Methadone Screen,Urine Negative ng/ml (<300); Opiate Screen,Urine Positive ng/ml (<300)
[2023-08-25 13:43] LABS: Cocaine Screen,Urine Negative ng/ml (<300)
[2023-08-25 13:44] LABS: Phencyclidine Screen,Urine Negative ng/ml (<25)
== END ==
PROVIDERS: PCP Emergency Medicine; Visit Provider Emergency Medicine
DX: F41.9 Anxiety disorder, unspecified (principal)
CPT/HCPCS: 80305

== ENCOUNTER 2023-10-27 14:06 | Outpatient (CLI) | payer BC, SELFPAY ==
[2023-10-27 17:58] LABS: Amphetamine/Metha Screen,Urine Negative ng/ml (<1000); Barbiturates Screen,Urine Negative ng/ml (<200); Benzodiazepines Screen,Urine Negative ng/ml (<200); Cannabinoid Screen,Urine Negative ng/ml (<50); Cocaine Screen,Urine Negative ng/ml (<300); Methadone Screen,Urine Negative ng/ml (<300); Opiate Screen,Urine Negative ng/ml (<300); Phencyclidine Screen,Urine Negative ng/ml (<25)
[2023-11-02 13:48] LABS: Alprazolam Negative (Cutoff=100); Benzodiazepines Negative ng/mL (Cutoff=100); Clonazepam Negative (Cutoff=100); Codeine Negative (Cutoff=100); Flurazepam Negative (Cutoff=100); Hydrocodone Positive (.); Hydromorphone Negative (Cutoff=100); Lorazepam Negative (Cutoff=100); Midazolam Negative (Cutoff=100); Morphine Negative (Cutoff=100); Opiates Positive (.); Temazepam Negative (Cutoff=100); Triazolam Negative (Cutoff=100)
== END 2023-10-27 23:59 ==
PROVIDERS: PCP Nurse Practitioner Family; Visit Provider Nurse Practitioner Family
DX: F41.9 Anxiety disorder, unspecified (principal)
CPT/HCPCS: 80307; 80346; 80361; 80365; G0480

== ENCOUNTER 2023-10-28 10:28 | Outpatient (CLI) | payer OTHER, BC, SELFPAY | END 2023-10-28 23:59 | LOC: LAB.DROPOF 11-06 10:29 | PROVIDERS: PCP Nurse Practitioner Family; Visit Provider Nurse Practitioner Family | DX: F41.9 Anxiety disorder, unspecified (principal); Z79.899 Other long term (current) drug therapy | CPT/HCPCS: 80346; 80361; 80365; G0480 ==